=== PATIENT | male | born 1965 | race African-American/Black ===

== ENCOUNTER 2021-12-05 13:30 | Emergency (ER) | payer MEDICAID ==
[~2021-12-05] VITALS: Ht 172.7 cm; Wt 72.6 kg
--- NOTE | 2021-12-05 13:45 | NUR ---
PT SEEN AND EVALUATED BY DR VIZCAINO
--- NOTE | 2021-12-05 16:06 | NUR ---
Called [facility] for transport. To be picked-up at 1930 today. [employer]orem[employer] Supervisor Nakita approved to charge the hospital for transport d/t [employer].
--- NOTE | 2021-12-05 20:00 | NUR ---
[facility] not able to take patient due to elavated BP of 163/108
[2021-12-05] MEDS ORDERED: CLONIDINE HCL 0.1 MG TABLET ONE (20:06)
[2021-12-05] MEDS ORDERED: CLONIDINE HCL 0.1 MG TABLET PO ONE (20:15)
--- NOTE | 2021-12-05 20:47 | NUR ---
Pt resting in bed at this time with eyes closed, unlabored breathing and equal respirations. No distress noted.
--- NOTE | 2021-12-05 20:56 | NUR ---
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
[2021-12-05 23:33] VITALS: BP 144/97
== END 2021-12-05 23:34 ==
LOC: ER 13:30
DX: M79.674 Pain in right toe(s) (principal); Z91.81 History of falling; Z79.82 Long term (current) use of aspirin; Z93.1 Gastrostomy status; Z98.2 Presence of cerebrospinal fluid drainage device; G93.89 Other specified disorders of brain; M20.11 Hallux valgus (acquired), right foot; R03.0 Elevated blood-pressure reading, without diagnosis of hypertension
CPT/HCPCS: 70450; 73660; A4663

== ENCOUNTER 2022-01-07 17:59 | Emergency (ER) | payer MEDICAID ==
[~2022-01-07] VITALS: Ht 170.2 cm; Wt 70.3 kg
[2022-01-07] MEDS ORDERED: FERROUS SULF (18:46)
[2022-01-07] MEDS ORDERED: MAGN400O6 GT (18:46)
[2022-01-07] MEDS ORDERED: FAMO-132 GT (18:46)
[2022-01-07] MEDS ORDERED: SENN-261 GT (18:46)
[2022-01-07] MEDS ORDERED: DOCU100C36 GT (18:46)
[2022-01-07] MEDS ORDERED: LABE100T5 GT (18:46)
[2022-01-07] MEDS ORDERED: MULT-594 PO (18:46)
[2022-01-07] MEDS ORDERED: NA P133E RC (18:46)
[2022-01-07] MEDS ORDERED: BISA10SU61 RC (18:46)
[2022-01-07] MEDS ORDERED: ACET-73 PO (18:46)
[2022-01-07] MEDS ORDERED: PANT40TA49 GT (18:46)
[2022-01-07] MEDS ORDERED: ASPI-1420 PO (18:46)
[2022-01-07] MEDS ORDERED: ACET-2154 PO (18:46)
[2022-01-07] MEDS ORDERED: HYDR-4077 GT (18:46)
[2022-01-07] MEDS ORDERED: FOLI1TAB94 GT (18:46)
[2022-01-07] MEDS ORDERED: CYAN-51 GT (18:46)
[2022-01-07] MEDS ORDERED: ALBUTEROL INH (18:46)
[2022-01-07] MEDS ORDERED: LISI40TA13 GT (18:46)
[2022-01-07] MEDS ORDERED: CLON0.1T GT (18:46)
[2022-01-07] MEDS ORDERED: IPRATROPIUM INH (18:46)
[2022-01-07] MEDS ORDERED: AMLO10TA4 GT (18:46)
[2022-01-07] MEDS ORDERED: LEVETIRACETAM GT (18:46)
[2022-01-07] MEDS ORDERED: GABA300C GT (18:46)
[2022-01-07] MEDS ORDERED: POTA10CA43 GT (18:46)
--- NOTE | 2022-01-07 18:55 | NUR ---
change of shift report from Renea CRUZ
--- NOTE | 2022-01-07 18:59 | NUR ---
Dr Mccurdy at bedside, MSE in progress
--- NOTE | 2022-01-07 19:35 | NUR ---
Patient taken to CT by social service technician
--- NOTE | 2022-01-07 19:50 | NUR ---
Patient back from CT
[2022-01-07 20:23] LABS: CARBON DIOXIDE 25 mmol/L (21-32); CHLORIDE 104 mmol/L (98-107); GLUCOSE 106 mg/dL (74-106); HEMATOCRIT 43.2 % (36.7-47.1); MEAN CORPUSCULAR HEMOGLOBIN 29.1 uug (23.8-33.4); MEAN CORPUSCULAR VOLUME 85.4 fL (73.0-96.2); PLATELET COUNT (AUTO) 181 K/uL (152-348); POTASSIUM 4.1 mmol/L (3.5-5.1); UREA NITROGEN, BLOOD 20 mg/dL (7-18)
[2022-01-07 20:36] LABS: ALANINE AMINOTRANSFERASE 42 U/L (16-63); ALKALINE PHOSPHATASE 70 U/L (50-136); ASPARTATE AMINOTRANSFERASE 15 U/L (15-37); BILIRUBIN,DIRECT < 0.1 mg/dL (0.0-0.2); BILIRUBIN,TOTAL 0.4 mg/dL (0.2-1.0)
[2022-01-07 21:57] LABS: *BILIRUBIN,URIN NEGATIVE (NEGATIVE); *CLARITY,URINE CLEAR (CLEAR); *COLOR,URINE YELLOW (YELLOW); *KETONES,URINE NEGATIVE (NEGATIVE); *UROBILINOGEN,URINE 0.2 E.U./dl (NORMAL); LEUKOCYTE ESTERASE ,URINE NEGATIVE (NEGATIVE); NITRITE, URINE NEGATIVE (NEGATIVE); PH,URINE 6.5 (5.0-8.0); UGLUCOSE NEGATIVE (NEGATIVE)
[2022-01-07 22:11] LABS: *BLOOD, URINE TRACE INTACT (NEGATIVE)
[2022-01-07 22:47] LABS: WBC,URINE 0-3 /HPF (0-3)
[2022-01-07 22:48] LABS: BACTERIA,URINE NONE SEEN /HPF (NONE SEEN); SQUAMOUS EPITHELIAL CELL,UR FEW /HPF (NONE SEEN)
--- NOTE | 2022-01-07 22:56 | NUR ---
called [facility], made aware that patient is discharged
--- NOTE | 2022-01-07 23:02 | NUR ---
called [facility] ambulance. ETA: 90 mins
--- NOTE | 2022-01-08 00:30 | NUR ---
[facility] ambulance unit 40 at bedside for patient tranport back to the facility
--- NOTE | 2022-01-08 00:42 | NUR ---
Patient discharged via [facility] ambulance unit 40 in stable condition. Written and verbal after care instructions given. Patient verbalizes understanding of instructions. Stressed follow up or return to ER for worsening s/s.
[2022-01-08 00:59] VITALS: BP 134/94
== END 2022-01-08 00:42 ==
LOC: ER 17:59
DX: Z04.3 Encounter for examination and observation following other accident (principal); I44.0 Atrioventricular block, first degree; I69.051 Hemiplegia and hemiparesis following nontraumatic subarachnoid hemorrhage affecting right dominant side; Z93.1 Gastrostomy status; E11.40 Type 2 diabetes mellitus with diabetic neuropathy, unspecified; I25.10 Atherosclerotic heart disease of native coronary artery without angina pectoris; E11.22 Type 2 diabetes mellitus with diabetic chronic kidney disease; I12.9 Hypertensive chronic kidney disease with stage 1 through stage 4 chronic kidney disease, or unspecified chronic kidney disease; N18.9 Chronic kidney disease, unspecified; R26.2 Difficulty in walking, not elsewhere classified; M48.02 Spinal stenosis, cervical region; J98.11 Atelectasis; K21.9 Gastro-esophageal reflux disease without esophagitis
CPT/HCPCS: 36415; 70450; 71045; 72125; 72170; 84484; 85025; 93005; A4663